=== PATIENT | male | born 1975 ===

== ENCOUNTER 2018-10-19 14:30 | Day surgery (SDC) | payer OTHER ==
[2018-10-16 12:16] VITALS: BMI 21.7
[2018-10-19] MEDS ORDERED: LIDOCAINE HCL 1%, 10 MG/ML (50 mL VIAL) IJ ONE (15:22)
[2018-10-19] MEDS ORDERED: BUPIVACAINE HCL/PF (5 MG/ML) 30 ML VIAL IJ ONE (15:22)
[2018-10-19] MEDS ORDERED: LACTATED RINGERS SOLUTION 1,000 ML IV SCH (15:45)
[2018-10-19] MEDS ORDERED: oxyCODONE HCL 5 MG TABLET PO PRN (15:45)
[2018-10-19] MEDS ORDERED: ONDANSETRON 4 MG/2 ML VIAL IVPUSH PRN (15:45)
[2018-10-19 18:12] VITALS: BP 149/83; PULSE 74; TEMP 97.6
--- NOTE | 2018-10-22 11:41 | PATH ---
Surgical Pathology Report Patient Name: PIOTR VALENZUELA [facility]. Rec. #: [id number] /Age/Gender: 1975 (Age: 43) / M Account: [id number] Location: [facility] SUR[facility] Taken: 10/19/2018 Received: 10/20/2018 Reported: 10/22/2018 Physicians: Donna Denis M.D. Specimen(s) Received HEMORRHOIDS Clinical History Prolapsing hemorrhoids Final Diagnosis HEMORRHOID, HEMORRHOIDECTOMY: ANORECTAL MUCOSA WITH VASCULAR CONGESTION AND ECTASIA CONSISTENT WITH HEMORRHOIDS. Electronically Signed Armand Aguirre M.D. Gross Description Received in formalin labeled "hemorrhoid," are 2 [place] portions of skin and soft tissue measuring 1.0 x 0.5 x 0.2 cm and 2.2 x 1.7 x 1.6 cm, consistent with hemorrhoids. The bases are inked green and the specimens are serially sectioned. Ironing Pleater sections are submitted in one cassette. /10/21/2018 [facility]10/21/2018
--- NOTE | 2019-01-07 15:03 | OP ---
DATE OF OPERATION: 10/19/2018 PREOPERATIVE DIAGNOSIS: Prolapsing ulcerated hemorrhoids. POSTOPERATIVE DIAGNOSIS: Prolapsing ulcerated hemorrhoids. OPERATIVE PROCEDURE: Excision of the prolapsed ulcerating hemorrhoids. SURGEON: Joe Abdul MD ANESTHESIA: Caudal block. The patient was given a caudal block by the anesthesiologist, and patient was placed in the jackknife position and the gluteal muscles were with tape. Examination revealed a large prolapsing hemorrhoid around the 3 o'clock position, in supine, and 9 o'clock position, in the prone position, and these were grasped with Allis clamp and a subcutaneous incision was made at the anal verge and submucosal dissection was done to the base of this mass. Once it was away, taken away from the internal sphincter muscles. The base was sutured with 3-0 chromic, and the hemorrhoidal tissue was excised. The mucosa, which was 2 edges of the cut, were approximated with the same suture. A small opening was left outside to expedite drainage. After adequate hemostasis, a dressing was applied and the patient went to the recovery room. JOE ABDUL M.D. /[id number]
== END 2018-10-19 18:30 | disposition home or self-care (01) ==
LOC: JASU-SURG 14:30
PROVIDERS: ATTEND Surgery Vascular Surgery
PROC: 06BY0ZC Excision of Hemorrhoidal Plexus, Open Approach (ICD-10-PCS; principal; 2018-10-19 15:00)
DX: K64.8 Other hemorrhoids (principal)
CPT/HCPCS: 88304-TC; 94760